=== PATIENT | female | born 1975 | race Caucasian/White ===

== ENCOUNTER → 2017-10-30 | Emergency (ER) | payer SELFPAY ==
[~2017-10-30] VITALS: Ht 152.4 cm; Wt 80.0 kg
[~2017-10-30] MED LIST: HYDR-762 PO; KETOROLAC 30 MG INJ IM STA; LEVO750T25 PO; ZOF8 PO
[2017-10-30 12:54] VITALS: Ht 152.4 cm; Wt 80.0 kg
--- NOTE | 2017-10-30 16:10 | ERD ---
ER Documentation Chief Complaint Chief Complaint AP TODAY ROS All systems reviewed and are negative except as per history of present illness. Medications Home Meds Active Scripts Ondansetron Hcl* (Zofran* ODT) 8 mg -ODT Tab.disper, 8 MG PO Q6 Y for NAUSEA AND /OR VOMITING, #10 TAB Prov:KIRSTEN PASTOR PA-C 08/18/15 Levofloxacin* (Levaquin*) 750 Mg Tablet, 750 MG PO DAILY for 5 Days, TAB Prov:KIRSTEN PASTOR PA-C 08/18/15 Hydrocodone Bit-Acetaminophen* ([place]*) 10-325 Mg Tablet, 1 TAB PO Q6 Y for PAIN , #14 TAB Prov:KIRSTEN PASTOR PA-C 08/18/15 PMhx/Soc Hx Alcohol Use: Yes Hx Substance Use: No Physical Exam Vitals Vital Signs Date Time Temp Pulse Resp B/P Pulse Ox O2 Delivery O2 Flow Rate FiO2 10/30/17 12:54 98.4 78 18 140/79 99 Results 24 hrs Current Medications Medications (Trade) Dose Ordered Sig/Justin Route PRN Reason Start Time Stop Time Status Last Admin Dose Admin Ketorolac Tromethamine (Toradol) 30 mg ONCE STAT IM 10/30/17 16:23 10/30/17 16:24 DC JOSE GALVIN PA-C Oct 30, 2017 16:10 Medications (Trade) Dose Ordered Sig/Justin Route PRN Reason Start Time Stop Time Status Last Admin Dose Admin Ketorolac Tromethamine (Toradol) 30 mg ONCE STAT IM 10/30/17 16:23 10/30/17 16:24 DC Procedures/MDM This is a 41-year-old female who presents to the emergency department today complaining of back pain. Patient has a known history of L4-L5 instrumental posterior spinal fusion and decompression in May 2016. Patient also has a known history of a right total knee arthroplasty in August 2014. Per the radiology report images of the lumbar spine [] Low suspicion for acute fracture or dislocation. Patient is afebrile and otherwise well-appearing. They have no loss of bowel or bladder control. Low suspicion for cauda equina or abscess. Patient was given [] here in the emergency department and pain improved. Patient will be given a prescription for [] At this time the patient is stable for discharge and outpatient management. Patient should follow up with their PCP in the next 1-2 days. They may return to the emergency department sooner for any persistent or worsening of symptoms. Patient understood and agreed with the plan. JOSE GALVIN PA-C Oct 30, 2017 16:10
== END | disposition left against medical advice (07) ==
LOC: FTE 12:49
DX: Z53.21 Procedure and treatment not carried out due to patient leaving prior to being seen by health care provider (principal)

== ENCOUNTER 2018-10-07 11:46 | Emergency (ER) | END 2018-10-07 15:05 | disposition home or self-care (01) ==

== ENCOUNTER 2019-03-12 11:55 | Emergency (ER) | payer MEDICAID ==
[~2019-03-12] VITALS: Ht 165.1 cm; Wt 70.7 kg
[~2019-03-12 11:55] MED LIST changes: +HYDR-4011 PO; -HYDR-762 PO; -KETOROLAC 30 MG INJ IM STA; -LEVO750T25 PO; +ONDA4TAB14 PO; -ZOF8 PO
[2019-03-12 12:27] VITALS: Ht 165.1 cm; Wt 70.7 kg
[2019-03-12] MEDS ORDERED: FAMOTIDINE 20 MG TAB PO STA (15:28)
[2019-03-12] MEDS ORDERED: LIDOCAINE/MYLANTA 40 ML BTL PO STA (15:28)
[2019-03-12] MEDS ORDERED: ACETAMINOPHEN 325 MG TAB PO ONE (15:30)
--- NOTE | 2019-03-12 15:32 | ERD ---
ER Documentation Chief Complaint Chief Complaint Pt with epigastric AP and vomiting X 2 day, reporting reflux HPI 43-year-old female, with history of cholelithiasis, presents to the emergency department, complaining of worsening of epigastric pain radiating to the back during the last 2 days. The pain is burning, sharp, 7/10, associated with nausea and vomiting x2. The patient denies bilious vomiting, no diarrhea or constipation, no blood in the stools. She denies fever or chills, no rashes. The patient is also complaining of persistent dry cough for 2 weeks. ROS All systems reviewed and are negative except as per history of present illness. Medications Home Meds Active Scripts Ondansetron Hcl* (Zofran*) 4 Mg Tab, 4 MG PO Q6H PRN for NAUSEA AND OR VOMITING, #20 TAB Prov:SHERRI CORNEJO MD 03/12/19 Omeprazole* (Omeprazole*) 40 Mg Capsule.dr, 40 MG PO DAILY, #30 CAP Prov:SHERRI CORNEJO MD 03/12/19 Ranitidine Hcl* (Zantac*) 150 Mg Tablet, 150 MG PO BID PRN for EPIGASTRIC PAIN, #60 TAB Prov:SHERRI CORNEJO MD 03/12/19 Ondansetron (Ondansetron Odt) 4 Mg Tab.rapdis, 4 MG PO Q6H PRN for NAUSEA AND/OR VOMITING, #10 TAB Prov:TRUNG GARNICA MD 10/07/18 Hydrocodone/Acetaminophen ([place]oss[place] 5-325 Tablet) 1 Each Tablet, 1 TAB PO Q6H PRN for SEVERE PAIN LEVEL 7-10, #7 TAB Prov:TRUNG GARNICA MD 10/07/18 Allergies Allergies: Coded Allergies: No Known Allergy (Unverified , 10/07/18) PMhx/Soc Hx Miscellaneous Medical Probl: Yes (H. Pylori) Hx Alcohol Use: Yes Hx Substance Use: No Hx Tobacco Use: No FmHx Family History: No diabetes, No coronary disease Physical Exam Vitals Vital Signs Date Temp Pulse Resp B/P (MAP) Pulse Ox O2 O2 Flow FiO2 Time Delivery Rate 03/12/19 98.2 69 18 124/66 98 12:27 (85) Physical Exam Const: No acute distress Head: Atraumatic Eyes: Normal Conjunctiva ENT: Normal External Ears, Nose and Mouth. Neck: Full range of motion. No meningismus. Resp: Clear to auscultation bilaterally Cardio: Regular rate and rhythm, no murmurs Abd: Soft, mild tenderness to deep palpation in the right upper quadrant area, no Muñoz sign, no peritoneal signs. Normal bowel sounds Skin: No petechiae or rashes Back: No midline or flank tenderness Ext: No cyanosis, or edema Neur: Awake and alert Psych: Normal Mood and Affect Result Diagram: 03/12/19 1533 03/12/19 1533 Results 24 hrs Laboratory Tests Test 03/12/19 15:33 White Blood Count 7.9 10^3/ul Red Blood Count 4.69 10^6/ul Hemoglobin 13.2 g/dl Hematocrit 39.9 % Mean Corpuscular Volume 85.1 fl Mean Corpuscular Hemoglobin 28.1 pg Mean Corpuscular Hemoglobin Concent 33.1 g/dl Red Cell Distribution Width 12.4 % Platelet Count 202 10^3/UL Mean Platelet Volume 10.3 fl Immature Granulocytes % 0.100 % Neutrophils % 58.9 % Lymphocytes % 33.2 % Monocytes % 6.1 % Eosinophils % 1.3 % Basophils % 0.4 % Nucleated Red Blood Cells % 0.0 /100WBC Immature Granulocytes # 0.010 10^3/ul Neutrophils # 4.6 10^3/ul Lymphocytes # 2.6 10^3/ul Monocytes # 0.5 10^3/ul Eosinophils # 0.1 10^3/ul Basophils # 0.0 10^3/ul Nucleated Red Blood Cells # 0.0 10^3/ul Urine Color STRAW Urine Clarity CLEAR Urine pH 6.0 Urine Specific Dobson 1.011 Urine Ketones NEGATIVE mg/dL Urine Nitrite NEGATIVE mg/dL Urine Bilirubin NEGATIVE mg/dL Urine Urobilinogen NEGATIVE mg/dL Urine Leukocyte Esterase NEGATIVE Mark/ul Urine Hemoglobin NEGATIVE mg/dL Urine Glucose NEGATIVE mg/dL Urine Total Protein NEGATIVE mg/dl Sodium Level 143 mmol/L Potassium Level 4.0 mmol/L Chloride Level 106 mmol/L Carbon Dioxide Level 28 mmol/L Anion Gap 9 Blood Urea Nitrogen 12 mg/dl Creatinine 0.61 mg/dl Est Glomerular Filtrat Rate mL/min > 60 mL/min Glucose Level 94 mg/dl Calcium Level 10.0 mg/dl Total Bilirubin 0.6 mg/dl Direct Bilirubin 0.00 mg/dl Indirect Bilirubin 0.6 mg/dl Aspartate Amino Transf (AST/SGOT) 23 IU/L Alanine Aminotransferase (ALT/SGPT) 24 IU/L Alkaline Phosphatase 63 IU/L Total Protein 8.4 g/dl Albumin 4.7 g/dl Globulin 3.70 g/dl Albumin/Globulin Ratio 1.27 Lipase 124 U/L Current Medications Medications Dose Sig/Justin Start Time Status Last (Trade) Ordered Route PRN Stop Time Admin Dose Reason Admin Famotidine 20 mg ONCE STAT 03/12/19 DC 03/12/19 (Pepcid) PO 15:28 03/12/19 16:07 15:37 40 ml ONCE STAT 03/12/19 DC 03/12/19 Miscellaneous PO 15:28 03/12/19 16:07 Medication 15:37 (Gi Cocktail (2)) 650 mg ONCE ONCE 03/12/19 DC 03/12/19 Acetaminophen PO 15:30 03/12/19 16:07 (Tylenol 15:37 Tab) Procedures/MDM Vital signs stable. Differential diagnosis include but not limited to: UTI, colitis, gastroenteritis, kidney stones, irritable bowel syndrome, inflammatory bowel syndrome, malabsorption syndrome, cholelithiasis, food intolerance, medic ation side effect, pancreatitis, diverticulitis, bowel obstruction. Physical examination and clinical presentation consistent most likely with GERD and cholelithiasis without evidence of cholecystitis, low suspicion for acute abdomen. During the ED course the patient remained stable, no new complaints. Results and clinical impression discussed with the patient who agrees with management. The patient is stable to be treated outpatient and will be discharged home; some side effects of prescribed medications (headache, rash, nausea, vomiting, diarrhea, drowsiness, habituation, bleeding, hypertension, interactions with other medications) were reviewed. The patient was informed that the evaluation in the emergency department has been done to rule out an acute emergency, therefore, chronic conditions like malignancy or other diseases have not been evaluated; therefore, the patient was instructed to follow up with the primary care provider in the next 48h. If symptoms persist, worsen or new symptoms develop, then patient should return to the ED immediately. Instructions explained and given directly by me to the patient with acknowledgment and demonstrated understanding. Disclaimer: Inadvertent spelling and grammatical errors are likely due to EHR/dictation software use and do not reflect on the overall quality of patient care. Also, please note that the electronic time recorded on this note does not necessarily reflect the actual time of the patient encounter. Departure Diagnosis: Primary Impression: Abdominal pain Additional Impressions: GERD (gastroesophageal reflux disease) Cholelithiasis History of Helicobacter pylori infection Condition: Stable Patient Instructions: Gallstones Additional Instructions: Muchas geovanna por [facility] para [place] servicio. Esperamos que en [place] visita a la alexsandra de emergencia [place] problema medico haya sido solucionado y que se sienta mucho mejor. Para estar seguros que [place] mejoria sigue en proceso, le pedimos el favor de hacer sravanthi tanner de seguimiento medico con [place] doctor primario en los proximos 2-4 hicks. Lleve con usted estos documentos y las medicinas recetadas. Si maria eugenia sintomas empeoran, NO SE ESPERE, por favor regrese a alexsandra de emergencia INMEDIATAMENTE. En bria que usted no tenga un mdico de atencin primaria: Llame al mdico o clnica comunitaria de referencia que aparece abajo lay las horas de consultorio para hacer sravanthi tanner para que le vean. CLINICAS: [facility] [phone] [facility] [phone] [facility] [phone] [facility] [phone] [facility] [id number] [facility] [phone] [place] March 12, 2019 15:32
[2019-03-12] MEDS ORDERED: OMEP40CA6 PO (16:36)
[2019-03-12] MEDS ORDERED: RANI150T35 PO (16:36)
[2019-03-12] MEDS ORDERED: ONDA4TAB13 PO (16:36)
[2019-03-12 17:15] VITALS: BP 122/58; PULSE 62; RESP 16
== END 2019-03-12 17:20 | disposition home or self-care (01) ==
LOC: FTE 11:55
DX: K21.9 Gastro-esophageal reflux disease without esophagitis (principal); K80.20 Calculus of gallbladder without cholecystitis without obstruction
CPT/HCPCS: 36415; 71046; 76705; 80053; 81003; 83690; 85025; Z7502; Z7610